=== PATIENT | female | born 1950 | race Caucasian/White ===

== ENCOUNTER 2017-07-15 16:08 | Outpatient (CLI) | payer BC | END 2017-07-15 16:09 | disposition home or self-care (01) | LOC: BICMAMMO 16:08 | PROVIDERS: ATTEND Physical Medicine & Rehabilitation | DX: Z12.31 Encounter for screening mammogram for malignant neoplasm of breast (principal); Z80.3 Family history of malignant neoplasm of breast | CPT/HCPCS: 77063; 77067 ==

== ENCOUNTER 2021-03-18 17:50 | Inpatient (IN) | payer MEDICARE, BC ==
[2021-03-18] MEDS ORDERED: Dexamethasone 4 mg/ml Vial ONE (18:18)
[2021-03-18 18:28] LABS: #Lymphocytes 0.4 thou/uL (1.20-3.40); #Monocytes 0.8 thou/uL (0.11-0.59); #Neutrophils 7.8 thou/uL (1.40-6.50); %Basophils 0.2 % (0.0-1.0); %Eosinophils 0.1 % (0.0-10.0); %Lymphocytes 4.1 % (21.0-51.0); %Monocytes 8.7 % (0.0-10.0); %Neutrophils 86.9 % (42.0-75.0); Mean Corpuscular HGB CONC 34.4 g/dL (32.0-36.0); Mean Corpuscular Hemoglobin 30.6 pg (27.0-31.0); Platelet Count 377 thou/uL (130-400); RBC Distribution Width 11.9 % (11.5-14.5); White Blood Cell (WBC) Count 8.9 thou/uL (4.8-10.8)
[2021-03-18 18:44] LABS: ALT (SGPT) 35 U/L (8-55); AST (SGOT) 39 U/L (5-34); Albumin 3.2 g/dL (3.4-4.8); Alkaline Phosphatase 65 U/L (40-110); Anion Gap 13 mmol/L (10-20); BUN (Urea Nitrogen) 14 mg/dL (9.8-20.1); Bilirubin, Total 0.6 mg/dL (0.2-1.2); CRP (Inflammatory) 18.99 mg/dL (= or < 0.5); Calc. Creatinine Clearance 0 mL/min (70-130); Calcium 8.5 mg/dL (7.8-10.44); Carbon Dioxide 23 mmol/L (23-31); Chloride 95 mmol/L (98-107); Globulin 3.5 g/dL (2.4-3.5); Glucose 141 mg/dL (80-115); Potassium 3.6 mmol/L (3.5-5.1); Protein, Total 6.7 g/dL (5.8-8.1); Sodium 127 mmol/L (136-145)
[2021-03-18 20:23] VITALS: BMI 21.7
[2021-03-18] MEDS ORDERED: Lactated Ringer's 1,000 ML IV SCH (20:30)
[2021-03-18] MEDS ORDERED: Acetaminophen 325 MG TAB PO PRN (20:34)
[2021-03-18] MEDS: Benzonatate 100 MG CAP PO SCH (20:38)
[2021-03-18] MEDS: guaiFENesin ER 600 MG TAB PO SCH (20:38)
[2021-03-18] MEDS: Lactated Ringer's 1,000 ML IV SCH (22:00)
[2021-03-19 03:32] LABS: Bacteria/HPF 1+ HPF (None Seen); Bilirubin Negative (Negative); Blood, Urine Negative (Negative); Clarity Clear (Clear); Glucose, Urine (Dipstick) Normal (Negative); Ketone, Urine Negative (Negative); Leukocyte Negative Leu/uL (Negative); Nitrite Negative (Negative); Protein, Urine (Dipstick) Negative (Neg-Trace); RBC/HPF 0-3 HPF (0-3); Specific Gravity, Urine 1.007 (1.002-1.036); Squamous Epithelial None Seen HPF (0-3); Urobilinogen Normal mg/dL (Less than 2); WBC/HPF 0-3 HPF (0-3); pH, Urine 6.5 (5.0-9.0)
[2021-03-19 03:34] LABS: Urine Culture Reflex Yes Yes
[2021-03-19] MEDS: Lactated Ringer's 1,000 ML IV SCH ×2 (05:51→16:26)
[2021-03-19] MEDS: Ibuprofen 800 MG TAB PO PRN ×2 (06:04→20:27)
[2021-03-19 07:27] LABS: #Lymphocytes 0.3 thou/uL (1.20-3.40); #Monocytes 0.5 thou/uL (0.11-0.59); %Basophils 0.3 % (0.0-1.0); %Eosinophils 0.1 % (0.0-10.0); %Lymphocytes 3.4 % (21.0-51.0); %Monocytes 5.1 % (0.0-10.0); %Neutrophils 91.1 % (42.0-75.0); Hemoglobin 10.6 g/dL (12.0-16.0); Mean Corpuscular Hemoglobin 28.9 pg (27.0-31.0); Mean Corpuscular Volume 90.4 fL (78.0-98.0); Mean Platelet Volume 7.4 fL (7.4-10.4); Platelet Count 388 thou/uL (130-400); RBC Distribution Width 11.9 % (11.5-14.5); Red Blood Cell (RBC) Count 3.65 mill/uL (4.20-5.40); White Blood Cell (WBC) Count 9.9 thou/uL (4.8-10.8)
[2021-03-19 07:30] LABS: Anion Gap 12 mmol/L (10-20); BUN (Urea Nitrogen) 15 mg/dL (9.8-20.1); Calc. Creatinine Clearance 68 mL/min (70-130); Calcium 7.9 mg/dL (7.8-10.44); Carbon Dioxide 23 mmol/L (23-31); Chloride 100 mmol/L (98-107); Glucose 187 mg/dL (80-115); Potassium 3.9 mmol/L (3.5-5.1); Sodium 131 mmol/L (136-145)
[2021-03-19] MEDS: Enoxaparin Sodium 40 MG/0.4 ML SYRINGE SC SCH (08:10)
[2021-03-19] MEDS: guaiFENesin ER 600 MG TAB PO SCH ×2 (08:11→20:26)
[2021-03-19] MEDS: Benzonatate 100 MG CAP PO SCH ×3 (08:11→20:26)
[2021-03-19] MEDS: Dexamethasone 4 MG TAB PO SCH (08:11)
[2021-03-19] MEDS ORDERED: Dexamethasone 1 MG TAB PO SCH (09:00)
[2021-03-19 23:27] LABS: SARS-CoV-2 PCR by NAA DETECTED (NotDetected)
[2021-03-20] MEDS: Lactated Ringer's 1,000 ML IV SCH ×3 (03:13→20:27)
[2021-03-20] MEDS ORDERED: Benzonatate 100 MG CAP PO PRN (06:17)
[2021-03-20 07:10] LABS: Hemoglobin 11.7 g/dL (12.0-16.0); Mean Corpuscular HGB CONC 32.8 g/dL (32.0-36.0); Mean Corpuscular Hemoglobin 29.8 pg (27.0-31.0); Mean Corpuscular Volume 90.9 fL (78.0-98.0); Mean Platelet Volume 7.3 fL (7.4-10.4); Platelet Count 490 thou/uL (130-400); Red Blood Cell (RBC) Count 3.92 mill/uL (4.20-5.40); White Blood Cell (WBC) Count 19.4 thou/uL (4.8-10.8)
[2021-03-20 07:24] LABS: Anion Gap 13 mmol/L (10-20); BUN (Urea Nitrogen) 12 mg/dL (9.8-20.1); Calc. Creatinine Clearance 64 mL/min (70-130); Calcium 8.3 mg/dL (7.8-10.44); Carbon Dioxide 26 mmol/L (23-31); Chloride 101 mmol/L (98-107); Glucose 119 mg/dL (80-115); Sodium 136 mmol/L (136-145)
[2021-03-20 07:43] LABS: Band 6 % (5-11); Lymphocytes 5 % (21-51); MDiff Complete? YES; Monocytes 7 % (0-10); Neutrophil 81 % (42-75); Platelet Morphology Comment Appears Increased; RBC Morphology Normal; Reactive Lymphocytes 1 % (0-10)
[2021-03-20] MEDS: Dexamethasone 4 MG TAB PO SCH (08:30)
[2021-03-20] MEDS: Enoxaparin Sodium 40 MG/0.4 ML SYRINGE SC SCH (08:30)
[2021-03-20] MEDS: guaiFENesin ER 600 MG TAB PO SCH ×2 (08:30→20:27)
[2021-03-20] MEDS: Benzonatate 100 MG CAP PO SCH ×3 (08:31→20:27)
[2021-03-20 08:48] LABS: Hemoglobin A1c 5.9 % (4.0-6.0)
[2021-03-20 09:02] LABS: Iron 13 ug/dL (50-170); Iron Binding Capacity, Total 174 mcg/dL (265-497)
[2021-03-20] MEDS: Ibuprofen 800 MG TAB PO PRN (09:21)
[2021-03-20 09:26] LABS: Ferritin 789.11 ng/mL (10-291)
[2021-03-20] MEDS: Ferrous Sulfate 325 MG TAB PO SCH (10:27)
[2021-03-21 07:40] LABS: #Eosinphils 0.1 thou/uL (0.0-0.7); #Lymphocytes 1.3 thou/uL (1.20-3.40); #Monocytes 1.5 thou/uL (0.11-0.59); #Neutrophils 15.9 thou/uL (1.40-6.50); %Basophils 0.1 % (0.0-1.0); %Eosinophils 0.5 % (0.0-10.0); %Lymphocytes 6.8 % (21.0-51.0); %Monocytes 8.2 % (0.0-10.0); %Neutrophils 84.4 % (42.0-75.0); Hemoglobin 11.7 g/dL (12.0-16.0); Mean Corpuscular HGB CONC 32.2 g/dL (32.0-36.0); Mean Corpuscular Hemoglobin 29.5 pg (27.0-31.0); Mean Corpuscular Volume 91.7 fL (78.0-98.0); Mean Platelet Volume 7.2 fL (7.4-10.4); Platelet Count 562 thou/uL (130-400); RBC Distribution Width 12.1 % (11.5-14.5); Red Blood Cell (RBC) Count 3.96 mill/uL (4.20-5.40); White Blood Cell (WBC) Count 18.9 thou/uL (4.8-10.8)
[2021-03-21 07:59] LABS: ALT (SGPT) 55 U/L (8-55); AST (SGOT) 53 U/L (5-34); Alkaline Phosphatase 70 U/L (40-110); Anion Gap 14 mmol/L (10-20); BUN (Urea Nitrogen) 12 mg/dL (9.8-20.1); Bilirubin, Total 0.4 mg/dL (0.2-1.2); Calc. Creatinine Clearance 69 mL/min (70-130); Calcium 8.2 mg/dL (7.8-10.44); Carbon Dioxide 26 mmol/L (23-31); Chloride 102 mmol/L (98-107); Globulin 2.8 g/dL (2.4-3.5); Glucose 95 mg/dL (80-115); Potassium 4.2 mmol/L (3.5-5.1); Protein, Total 5.8 g/dL (5.8-8.1); Sodium 138 mmol/L (136-145)
[2021-03-21] MEDS: Dexamethasone 4 MG TAB PO SCH (09:49)
[2021-03-21] MEDS: Benzonatate 100 MG CAP PO SCH ×3 (09:49→20:37)
[2021-03-21] MEDS: Enoxaparin Sodium 40 MG/0.4 ML SYRINGE SC SCH (09:49)
[2021-03-21] MEDS: guaiFENesin ER 600 MG TAB PO SCH ×2 (09:49→20:37)
[2021-03-21] MEDS: Lactated Ringer's 1,000 ML IV SCH (09:50)
[2021-03-21] MEDS: hydrOXYzine 25 MG TAB PO SCH (20:37)
[2021-03-22 07:39] LABS: Hemoglobin 11.1 g/dL (12.0-16.0); Mean Corpuscular HGB CONC 32.9 g/dL (32.0-36.0); Mean Corpuscular Hemoglobin 29.6 pg (27.0-31.0); Platelet Count 533 thou/uL (130-400); RBC Distribution Width 12.1 % (11.5-14.5); Red Blood Cell (RBC) Count 3.76 mill/uL (4.20-5.40); White Blood Cell (WBC) Count 14.5 thou/uL (4.8-10.8)
[2021-03-22 07:54] LABS: ALT (SGPT) 97 U/L (8-55); AST (SGOT) 76 U/L (5-34); Albumin 2.8 g/dL (3.4-4.8); Alkaline Phosphatase 71 U/L (40-110); Anion Gap 11 mmol/L (10-20); BUN (Urea Nitrogen) 13 mg/dL (9.8-20.1); Bilirubin, Total 0.5 mg/dL (0.2-1.2); Calc. Creatinine Clearance 74 mL/min (70-130); Calcium 8.1 mg/dL (7.8-10.44); Carbon Dioxide 28 mmol/L (23-31); Chloride 103 mmol/L (98-107); Globulin 2.7 g/dL (2.4-3.5); Glucose 91 mg/dL (80-115); Potassium 3.9 mmol/L (3.5-5.1); Protein, Total 5.5 g/dL (5.8-8.1); Sodium 138 mmol/L (136-145)
[2021-03-22] MEDS: Benzonatate 100 MG CAP PO SCH ×3 (09:05→21:20)
[2021-03-22] MEDS: guaiFENesin ER 600 MG TAB PO SCH ×2 (09:05→21:20)
[2021-03-22] MEDS: Dexamethasone 4 MG TAB PO SCH (09:05)
[2021-03-22] MEDS: Enoxaparin Sodium 40 MG/0.4 ML SYRINGE SC SCH (09:05)
[2021-03-22 09:18] LABS: Band 6 % (5-11); Hypersemented Neutrophil SLIGHT; Lymphocytes 4 % (21-51); MDiff Complete? YES; Metamyelocyte 5 % (0-0); Monocytes 7 % (0-10); Myelocyte 1 % (0-0); Neutrophil 77 % (42-75); Platelet Morphology Comment Appears Increased; Polychromasia SLIGHT = 2-3 cells (100X) (0-2/hpf)
[2021-03-22] MEDS: Ferrous Sulfate 325 MG TAB PO SCH (09:42)
[2021-03-22] MEDS: hydrOXYzine 25 MG TAB PO SCH (21:20)
[2021-03-23 08:19] LABS: #Eosinphils 0.2 thou/uL (0.0-0.7); #Lymphocytes 1.9 thou/uL (1.20-3.40); #Monocytes 1.1 thou/uL (0.11-0.59); #Neutrophils 11.1 thou/uL (1.40-6.50); %Basophils 0.2 % (0.0-1.0); %Eosinophils 1.5 % (0.0-10.0); %Monocytes 7.7 % (0.0-10.0); %Neutrophils 77.6 % (42.0-75.0); Hemoglobin 11.9 g/dL (12.0-16.0); Mean Corpuscular HGB CONC 32.5 g/dL (32.0-36.0); Mean Corpuscular Hemoglobin 29.4 pg (27.0-31.0); Mean Corpuscular Volume 90.6 fL (78.0-98.0); Platelet Count 613 thou/uL (130-400); RBC Distribution Width 12.1 % (11.5-14.5); Red Blood Cell (RBC) Count 4.06 mill/uL (4.20-5.40); White Blood Cell (WBC) Count 14.3 thou/uL (4.8-10.8)
[2021-03-23] MEDS: Enoxaparin Sodium 40 MG/0.4 ML SYRINGE SC SCH (08:20)
[2021-03-23] MEDS: Benzonatate 100 MG CAP PO SCH ×4 (08:21→21:14)
[2021-03-23] MEDS: Dexamethasone 4 MG TAB PO SCH (08:21)
[2021-03-23] MEDS: guaiFENesin ER 600 MG TAB PO SCH ×3 (08:21→21:14)
[2021-03-23 08:30] LABS: ALT (SGPT) 117 U/L (8-55); AST (SGOT) 78 U/L (5-34); Albumin 3.1 g/dL (3.4-4.8); Alkaline Phosphatase 88 U/L (40-110); Anion Gap 12 mmol/L (10-20); BUN (Urea Nitrogen) 12 mg/dL (9.8-20.1); Bilirubin, Total 0.5 mg/dL (0.2-1.2); Calc. Creatinine Clearance 70 mL/min (70-130); Calcium 8.5 mg/dL (7.8-10.44); Carbon Dioxide 29 mmol/L (23-31); Chloride 102 mmol/L (98-107); Globulin 3.1 g/dL (2.4-3.5); Glucose 88 mg/dL (80-115); Potassium 4.3 mmol/L (3.5-5.1); Protein, Total 6.2 g/dL (5.8-8.1); Sodium 139 mmol/L (136-145)
[2021-03-23] MEDS: hydrOXYzine 25 MG TAB PO SCH (21:14)
[2021-03-24 08:06] VITALS: BP 109/65; TEMP 97.4
[2021-03-24 09:11] LABS: ALT (SGPT) 132 U/L (8-55); AST (SGOT) 71 U/L (5-34); Albumin 3.2 g/dL (3.4-4.8); Alkaline Phosphatase 92 U/L (40-110); Anion Gap 15 mmol/L (10-20); BUN (Urea Nitrogen) 17 mg/dL (9.8-20.1); Bilirubin, Total 0.6 mg/dL (0.2-1.2); Calc. Creatinine Clearance 63 mL/min (70-130); Calcium 8.7 mg/dL (7.8-10.44); Carbon Dioxide 26 mmol/L (23-31); Chloride 103 mmol/L (98-107); Globulin 3.3 g/dL (2.4-3.5); Glucose 120 mg/dL (80-115); Potassium 3.7 mmol/L (3.5-5.1); Protein, Total 6.5 g/dL (5.8-8.1); Sodium 140 mmol/L (136-145)
[2021-03-24 09:15] LABS: Hemoglobin 12.7 g/dL (12.0-16.0); Mean Corpuscular HGB CONC 33.3 g/dL (32.0-36.0); Mean Corpuscular Hemoglobin 30.3 pg (27.0-31.0); Mean Corpuscular Volume 91.2 fL (78.0-98.0); Mean Platelet Volume 6.7 fL (7.4-10.4); Platelet Count 597 thou/uL (130-400); RBC Distribution Width 12.4 % (11.5-14.5); Red Blood Cell (RBC) Count 4.18 mill/uL (4.20-5.40); White Blood Cell (WBC) Count 20.3 thou/uL (4.8-10.8)
[2021-03-24 09:47] LABS: Band 2 % (5-11); Eosinophils 2 % (0-10); Lymphocytes 15 % (21-51); MDiff Complete? YES; Monocytes 7 % (0-10); Myelocyte 1 % (0-0); Neutrophil 73 % (42-75); Platelet Morphology Comment Appears Increased; Polychromasia SLIGHT = 2-3 cells (100X) (0-2/hpf)
[2021-03-24] MEDS: Dexamethasone 4 MG TAB PO SCH (09:55)
[2021-03-24] MEDS: Benzonatate 100 MG CAP PO SCH ×2 (09:55→12:12)
[2021-03-24] MEDS: Enoxaparin Sodium 40 MG/0.4 ML SYRINGE SC SCH ×2 (09:55→12:13)
[2021-03-24] MEDS: guaiFENesin ER 600 MG TAB PO SCH ×2 (09:55→12:14)
[2021-03-24] MEDS: Ferrous Sulfate 325 MG TAB PO SCH (09:57)
== END 2021-03-24 12:10 | disposition home health service (06) | DRG 177 ==
LOC: ERS 17:50 → T4-B 18:54
PROVIDERS: ADMIT Family Medicine; ATTEND Family Medicine
PROC: 8E0ZXY6 Isolation (ICD-10-PCS; principal; 2021-03-18)
DX: U07.1 COVID-19 (principal); J96.01 Acute respiratory failure with hypoxia; J12.82 Pneumonia due to coronavirus disease 2019; E87.1 Hypo-osmolality and hyponatremia; R73.9 Hyperglycemia, unspecified; G47.00 Insomnia, unspecified; R73.03 Prediabetes; D50.9 Iron deficiency anemia, unspecified; R74.01 Elevation of levels of liver transaminase levels; Z88.0 Allergy status to penicillin; D75.838 Other thrombocytosis
CPT/HCPCS: 36415; 71045; 80048; 80053; 81001; 82607; 82728; 82746; 83036; 83540; 83550; 83605; 83930; 83935; 84145; 84300; 85025; 85652; 86140; 87077; 87086; 87186; 94760; J1100; J1650; J7120; J8540; U0003; U0005